=== PATIENT | male | born 1945 | race Caucasian/White ===

== ENCOUNTER → 2021-12-10 10:13 | Outpatient (BNVA) | payer MEDICARE, SELFPAY | PROVIDERS: Visit Provider Family Medicine | DX: F31.30 Bipolar disorder, current episode depressed, mild or moderate severity, unspecified (principal); E78.2 Mixed hyperlipidemia; I10 Essential (primary) hypertension; J30.2 Other seasonal allergic rhinitis; Z76.89 Persons encountering health services in other specified circumstances; N40.0 Benign prostatic hyperplasia without lower urinary tract symptoms | CPT/HCPCS: 80053; 80061; 84153; 84439; 84443; 85025 ==

== ENCOUNTER → 2022-08-19 07:47 | Outpatient (BNVA) | payer MEDICARE, SELFPAY | PROVIDERS: PCP Family Medicine; Referring Provider Family Medicine; Visit Provider Nurse Practitioner Family | DX: L72.0 Epidermal cyst (principal); L57.0 Actinic keratosis; L82.0 Inflamed seborrheic keratosis; L85.3 Xerosis cutis; D22.5 Melanocytic nevi of trunk; L81.4 Other melanin hyperpigmentation; L57.8 Other skin changes due to chronic exposure to nonionizing radiation; L90.5 Scar conditions and fibrosis of skin; Z85.828 Personal history of other malignant neoplasm of skin; Z87.891 Personal history of nicotine dependence; Z71.89 Other specified counseling; Z85.820 Personal history of malignant melanoma of skin | CPT/HCPCS: 17000; 17003; 17110; 99203 ==

== ENCOUNTER → 2023-01-25 11:26 | Outpatient (BNVA) | payer MEDICARE, SELFPAY | PROVIDERS: PCP Family Medicine; Visit Provider Family Medicine | DX: R41.3 Other amnesia (principal); E78.2 Mixed hyperlipidemia; F31.31 Bipolar disorder, current episode depressed, mild; I10 Essential (primary) hypertension; Z12.5 Encounter for screening for malignant neoplasm of prostate; E83.52 Hypercalcemia | CPT/HCPCS: 80053; 80061; 82306; 82607; 82746; 84443; 85025; G0103 ==

== ENCOUNTER → 2023-04-06 09:00 | Outpatient (BNVA) | payer MEDICARE, SELFPAY | PROVIDERS: PCP Family Medicine; Referring Provider Family Medicine; Visit Provider Psychiatry & Neurology Neurology | DX: R41.3 Other amnesia (principal); R42 Dizziness and giddiness; Z82.0 Family history of epilepsy and other diseases of the nervous system | CPT/HCPCS: 99203 ==

== ENCOUNTER 2023-04-21 10:15 | Outpatient (CLI) | payer MEDICARE, SELFPAY ==
--- NOTE | 2023-04-21 10:45 | USCV_ITS ---
Will Xavier Age: 77 Gender: M : 1945 Exam Date: 04/21/2023 10:32 Ordering Phys: Joseluis Sullivan MD Technologist: CT Exam Location: [facility] [place]_ Indication: dizziness Risk Factors: Previous Vascular Surgery: Right Brachial BP: / Left Brachial BP: / Right Left Velocity (cm/s) Spectral Plaque Velocity (cm/s) Spectral Plaque Syst/Diast Broadening Syst/Diast Broadening 74.90/ 15.80 Prox CCA 88.20 / 12.10 70.00/ 16.80 Mid CCA 74.90 / 17.70 64.90/ 14.50 Distal CCA 80.10 / 19.80 35.80/ 11.70 Prox ICA 47.00 / 11.90 57.10/ 17.10 Mid ICA 48.70 / 17.50 55.00/ 13.90 Distal ICA 50.80 / 15.65 81.80 ECA 66.50 0.76 ICA/CCA 0.59 Antegrade Vertebral Antegrade 14.50/ 0.70 cm/s 33.20/ 12.00 cm/s Tri Subclavian Bi 104.7 72.40 0 CONCLUSIONS Right ICA stenosis <50%. Mild atheromatous plaque right carotid bulb/ICA. Left ICA stenosis <50%. Mild atheromatous plaque left carotid bulb/ICA. Normal antegrade Doppler flow noted in the right vertebral artery. Normal antegrade Doppler flow noted in the left vertebral artery. Isrrael Adan MD (Electronically Signed) Final Date: 21 April 2023 10:59 S
== END 2023-04-21 10:16 | disposition home or self-care (01) ==
LOC: RAD 10:16
PROVIDERS: PCP Family Medicine; Visit Provider Psychiatry & Neurology Neurology
DX: R42 Dizziness and giddiness (principal); G04.90 Encephalitis and encephalomyelitis, unspecified; R41.3 Other amnesia; I65.23 Occlusion and stenosis of bilateral carotid arteries
CPT/HCPCS: 93880

== ENCOUNTER 2023-04-30 10:39 | Outpatient (CLI) | payer MEDICARE, SELFPAY ==
--- NOTE | 2023-04-30 11:00 | MR_ITS ---
WS: [id number] MRI HEAD WITHOUT CONTRAST TECHNIQUE: Sagittal T1, T2 axial, T2 axial FLAIR, axial and coronal T1 images, axial susceptibility w eighted imaging, axial diffusion weighted images, and coronal T2 images were obtained. CLINICAL INFORMATION: G04.90 - Encephalitis and encephalomyelitis, unspecified COMPARISON: None. FINDINGS: No evidence of restricted diffusion to suggest acute ischemia. Ventricular system and basilar cistern s are patent. Moderate small vessel changes. Moderate to advanced parenchymal volume loss. Moderate s ymmetric atrophy temporal lobes and hippocampal formations. No hemosiderin on susceptibly weighted im ages. Normal posterior fossa. Normal vascular flow voids at the skull base. No extra-axial fluid collection s. No evidence of mass or mass effect. Retention cyst or polyps in the maxillary sinuses. Mastoid air cells are well aerated. RIGHT maxillary retention cyst or polyp measures 1.4 x 1.0 cm. LEFT maxillar y retention cyst or polyp measures 1.3 x 0.9 cm. IMPRESSION: 1. No evidence of restricted diffusion to suggest acute ischemia. 2. Moderate small vessel changes with moderate global parenchymal volume loss. 3. Moderate symmetric atrophy temporal lobes and hippocampal formations. 4. Mild mucosal thickening in the paranasal sinuses with small retention cyst or polyps described ab ove. 5. Mastoid air cells are well aerated. 6. No hemosiderin on susceptibly weighted images.
== END 2023-04-30 10:40 | disposition home or self-care (01) ==
LOC: RAD 10:39
PROVIDERS: PCP Family Medicine; Visit Provider Psychiatry & Neurology Neurology
DX: G04.90 Encephalitis and encephalomyelitis, unspecified (principal); R41.3 Other amnesia
CPT/HCPCS: 70551

== ENCOUNTER → 2023-05-14 11:25 | Outpatient (BNVA) | payer MEDICARE, SELFPAY | PROVIDERS: PCP Family Medicine; Visit Provider Psychiatry & Neurology Neurology | DX: G93.40 Encephalopathy, unspecified (principal); R41.3 Other amnesia; R42 Dizziness and giddiness | CPT/HCPCS: 95812 ==

== ENCOUNTER → 2023-05-18 13:58 | Outpatient (BNVA) | payer MEDICARE, SELFPAY | PROVIDERS: PCP Family Medicine; Visit Provider Psychiatry & Neurology Neurology | DX: G31.84 Mild cognitive impairment of uncertain or unknown etiology (principal); I10 Essential (primary) hypertension | CPT/HCPCS: 99212 ==

== ENCOUNTER → 2024-01-05 11:15 | Outpatient (BNVA) | payer MEDICARE, SELFPAY | PROVIDERS: PCP Family Medicine; Visit Provider Nurse Practitioner Family | DX: D22.5 Melanocytic nevi of trunk (principal); L81.4 Other melanin hyperpigmentation; L82.1 Other seborrheic keratosis; L57.8 Other skin changes due to chronic exposure to nonionizing radiation; D48.5 Neoplasm of uncertain behavior of skin; L57.0 Actinic keratosis; Z85.828 Personal history of other malignant neoplasm of skin; Z85.820 Personal history of malignant melanoma of skin | CPT/HCPCS: 11102; 17000; 99213 ==

== ENCOUNTER → 2024-01-06 10:46 | Outpatient (BNVA) | payer MEDICARE, SELFPAY | PROVIDERS: PCP Family Medicine; Visit Provider Family Medicine | DX: E78.2 Mixed hyperlipidemia (principal) | CPT/HCPCS: 80053; 80061; 85025 ==

== ENCOUNTER 2024-01-24 07:52 | Outpatient (CLI) | payer MEDICARE, SELFPAY ==
--- NOTE | 2024-01-24 08:00 | CT_ITS ---
WS: [id number] LDCT LUNG CANCER SCREENING HISTORY: screening TECHNIQUE: Axial imaging performed from the apices to 1 cm below the costophrenic angles. Coronal and sagittal reformats are submitted with axial MIP series. All CT scans at [facility] use at least one of these dose optimization techniques: automated exposure control; mA and/or kV adjustment per patient size (includes targeted exams where dose is matched to clinical indication); or iterativ e reconstruction. DLP: 91.60 mGy.cm DIvol: Mean CTDIvol: 2.40 (mGy) COMPARISON: None available. Diagnostic quality: Poor inspiration and motion artifact. Lungs: Diffuse hazy attenuation throughout both lungs this is in part due to poor inspiratory effort and breathing motion artifact. This makes evaluation for small pulmonary nodules difficult. No mass o r nodule is identified. Dependent changes bilaterally. Heart: Normal size heart with no pericardial effusion.. Other findings: Atherosclerosis aorta. Normal size pulmonary artery. No adenopathy. No adrenal mass. Incompletely visualized cystic masses from the upper pole of the RIGHT kidney. The largest mass measu res 5.8 x 4.9 cm. Increase in thoracic kyphosis. CT/CT lung screening [id number] IMPRESSION: LUNG-RADS: 2S-Benign Appearance or Behavior with Significant Findings FOLLOW UP: 12 Month: Continue annual screening with LDCT OTHER FINDINGS (S MODIFIER): Recommend renal ultrasound. Cystic masses are inco mpletely visualized in the upper pole of the RIGHT kidney. No prior studies to indicate this is been present and are benign on prior studies.
== END 2024-01-24 07:53 | disposition home or self-care (01) ==
LOC: RAD 07:54
PROVIDERS: PCP Family Medicine; Visit Provider Family Medicine
DX: Z12.2 Encounter for screening for malignant neoplasm of respiratory organs (principal); F17.219 Nicotine dependence, cigarettes, with unspecified nicotine-induced disorders; I70.0 Atherosclerosis of aorta; Q61.02 Congenital multiple renal cysts; M40.204 Unspecified kyphosis, thoracic region
CPT/HCPCS: 71271

== ENCOUNTER → 2024-01-25 07:56 | Outpatient (BNVA) | payer MEDICARE, SELFPAY | PROVIDERS: PCP Family Medicine; Visit Provider Dermatology | DX: C44.519 Basal cell carcinoma of skin of other part of trunk (principal) | CPT/HCPCS: 17262 ==

== ENCOUNTER 2024-02-17 12:24 | Outpatient (CLI) | payer MEDICARE, SELFPAY ==
--- NOTE | 2024-02-17 12:45 | USCV_ITS ---
Will Xavier Age: 78 Gender: M : 1945 Exam Date: 02/17/2024 12:45 Ordering Phys: Wilder Castle MD Technologist: Exam Location: [facility] [place] Indication: cp sob BP: 140 / 85 HR: 54 Rhythm: Sinus Technical Quality: Adequate MEASUREMENTS (Male / Female) Normal Values 2D ECHO LV Diastolic Diameter PLAX 3.7 cm 4.2 - 5.9 / 3.9 - 5.3 cm IVS Diastolic Thickness 1.4 cm 0.6 - 1.0 / 0.6 - 0.9 cm IVS Systolic Thickness 1.5 cm LVPW Diastolic Thickness 1.4 cm 0.6 - 1.0 / 0.6 - 0.9 cm LVPW Systolic Thickness 1.4 cm LVOT Diameter 2.0 cm LV Ejection Fraction 2D Teich 67.3 % LV Ejection Fraction MOD 4C 70.5 % LV Ejection Fraction MOD 2C 62.3 % LV Ejection Fraction 2C AL 63.2 % LA Diameter 3.3 cm RA Systolic Volume 4C AL 22.4 ml RA Systolic Volume 4C MOD 20.7 ml Aorta at Sinotubular Diameter 3.1 cm DOPPLER AV Peak Velocity 149.0 cm/s LVOT Peak Velocity 104.0 cm/s AV Area Cont Eq vti 2.7 cm squared AV Area Cont Eq pk 2.2 cm squared MV Peak Velocity 118.0 cm/s MV Area PHT 3.0 cm squared Mitral E to A Ratio 0.8 TV Peak Velocity 156.0 cm/s TR Peak Velocity 185.0 cm/s TR Peak Gradient 13.7 mmHg TV Peak E Velocity 120.0 cm/s Right Atrial Pressure 3.0 mmHg Pulmonary Artery Systolic Pressu 16.7 mmHg PV Peak Velocity 127.0 cm/s FINDINGS Left Ventricle Left ventricle is normal size. LV systolic function is normal with EF of 60-65%. No regional wall motion abnormalities. Grade 1 diastolic dysfunction Right Ventricle Normal in size and function Right Atrium Normal in size Left Atrium Normal in size Mitral Valve Structurally normal mitral valve. Mild mitral regurgitation. Aortic Valve Structurally normal aortic valve. Trace aortic regurgitation. No significant stenosis. Tricuspid Valve Mild tricuspid regurgitation. Pulmonary artery systolic pressure is normal. Pulmonic Valve Mild pulmonic regurgitation. Pericardium Normal Aorta Normal in size IVC Appears to be normal CONCLUSIONS LV systolic function is normal with EF of 60-65% Grade 1 diastolic dysfunction Mild mitral regurgitation Trace aortic regurgitation Mild tricuspid regurgitation Mild pulmonic regurgitation No comparison studies are available. Naif Oliveros MD (Electronically Signed) Final Date: 20 February 2024 13:46 S
== END 2024-02-17 12:25 | disposition home or self-care (01) ==
LOC: RAD 12:26
PROVIDERS: PCP Family Medicine; Visit Provider Family Medicine
DX: I27.20 Pulmonary hypertension, unspecified (principal); I50.30 Unspecified diastolic (congestive) heart failure
CPT/HCPCS: 93306

== ENCOUNTER → 2024-05-25 13:32 | Outpatient (BNVA) | payer MEDICARE, SELFPAY | PROVIDERS: PCP Family Medicine; Visit Provider Nurse Practitioner Family | DX: L57.8 Other skin changes due to chronic exposure to nonionizing radiation (principal); L81.4 Other melanin hyperpigmentation; D22.5 Melanocytic nevi of trunk; Z85.828 Personal history of other malignant neoplasm of skin; Z08 Encounter for follow-up examination after completed treatment for malignant neoplasm; Z85.820 Personal history of malignant melanoma of skin; L57.0 Actinic keratosis | CPT/HCPCS: 17000; 99213 ==

== ENCOUNTER → 2024-11-22 11:15 | Outpatient (BNVA) | payer MEDICARE, SELFPAY | PROVIDERS: PCP Family Medicine; Visit Provider Nurse Practitioner Family | DX: L91.0 Hypertrophic scar (principal); L57.8 Other skin changes due to chronic exposure to nonionizing radiation; L81.4 Other melanin hyperpigmentation; D22.5 Melanocytic nevi of trunk; Z85.828 Personal history of other malignant neoplasm of skin | CPT/HCPCS: 11102; 17000; 99213 ==

== ENCOUNTER → 2024-12-14 11:08 | Outpatient (BNVA) | payer MEDICARE, SELFPAY | PROVIDERS: PCP Family Medicine; Visit Provider Nurse Practitioner Family | DX: L57.8 Other skin changes due to chronic exposure to nonionizing radiation (principal); Z85.828 Personal history of other malignant neoplasm of skin; Z08 Encounter for follow-up examination after completed treatment for malignant neoplasm; Z85.820 Personal history of malignant melanoma of skin; C44.719 Basal cell carcinoma of skin of left lower limb, including hip | CPT/HCPCS: 17262; 99213 ==